=== PATIENT | female | born 1995 | race African-American/Black ===

== ENCOUNTER 2019-12-08 13:46 | Emergency (ER) | payer OTHER ==
[~2019-12-08] VITALS: Ht 165.1 cm; Wt 100.0 kg
[2019-12-08] MEDS ORDERED: CYCLOBENZAPR5 MG PO (15:19)
[2019-12-08 16:05] VITALS: BP 108/76
== END 2019-12-08 16:05 | disposition home or self-care (01) ==
LOC: ED 13:46
DX: M25.572 Pain in left ankle and joints of left foot (principal)

== ENCOUNTER 2023-03-18 09:40 | Day surgery (SDC) | payer OTHER ==
[~2023-03-18] VITALS: Ht 165.1 cm; Wt 85.7 kg
[~2023-03-18 09:40] MED LIST: ALKA SELTZE PO; CYCLOBENZAPR5 MG PO; IBUPROFEN600 MG PO; MIDOL PO
[2023-03-18] MEDS ORDERED: DAYQUIL SEVERE PO (10:07)
[2023-03-18] MEDS ORDERED: PERCOCET 5/321 COMBO PO (11:50)
[2023-03-18 13:35] VITALS: BP 118/61
== END 2023-03-18 13:30 | disposition home or self-care (01) ==
LOC: ORM 09:40
PROVIDERS: ATTEND Surgery
DX: K80.10 Calculus of gallbladder with chronic cholecystitis without obstruction (principal); J45.909 Unspecified asthma, uncomplicated
CPT/HCPCS: J0131; J0690